=== PATIENT | female | born 1990 | race African-American/Black ===

== ENCOUNTER 2017-03-29 08:37 | Emergency (ER) | payer MEDICAID ==
[~2017-03-29] VITALS: Ht 162.6 cm; Wt 72.6 kg
[2017-03-29 10:26] LABS: Albumin 4.1 g/dL (3.4-5.0); BUN/Creatinine Ratio 13.2; Calcium 9.2 mg/dL (8.5-10.1); Potassium 3.6 mmol/L (3.5-5.1); Total Protein 7.6 g/dL (6.4-8.2)
[2017-03-29 10:33] LABS: Basophils # (auto) 0 uL; Basophils % (auto) 0.3 % (0.0-2.0); Eosinophils # (auto) 0 uL; Eosinophils % (auto) 0.2 % (0.0-7.0); Hematocrit 40.8 % (36.0-46.0); Hemoglobin 13.5 g/dL (12.2-16.2); Lymphocytes % (auto) 42.4 % (10.0-50.0); Mean Corpuscular Hemoglobin 29.4 pg (28.0-32.0); Mean Corpuscular Hgb Conc. 33.2 g/dL (32.0-36.0); Mean Corpuscular Volume 88.7 fL (80.0-100.0); Mean Platelet Volume 8.7 fL (7.4-10.4); Monocytes # (auto) 0 uL; Monocytes % (auto) 0.3 % (0.0-12.0); Neutrophils # (auto) 2.7 uL; Neutrophils % (auto) 56.8 % (37.0-80.0); Platelet Count (auto) 320 10^3/uL (140-450); Red Cell Distribution Width 14.3 % (11.6-16.0); White Blood Cell 4.7 10^3/uL (4.4-10.8)
[2017-03-29 11:42] LABS: Urine Bilirubin Negative (Negative); Urine Blood Negative /uL (Negative); Urine Color Yellow (Yellow); Urine Glucose Normal (Normal); Urine Ketone Negative (Negative); Urine Mucus MANY (None Seen); Urine Nitrite Negative (Negative); Urine RBC 32 /hpf (0 - 4); Urine Squamous Epithelial Cell MANY /hpf (<5); Urine WBC Clumps PRESENT /hpf (None Seen)
[2017-03-29 12:40] VITALS: BP 147/87
== END 2017-03-29 14:13 | disposition home or self-care (01) ==
LOC: ER 08:37
DX: N39.0 Urinary tract infection, site not specified (principal); R42 Dizziness and giddiness; G35 Multiple sclerosis
CPT/HCPCS: 36415; 80053; 81001; 81025; 84484; 85025; 93005

== ENCOUNTER 2017-05-29 17:53 | Emergency (ER) | payer MEDICAID ==
[~2017-05-29] VITALS: Ht 162.6 cm; Wt 72.1 kg
[2017-05-29 20:07] VITALS: BP 123/84
== END 2017-05-29 20:54 | disposition home or self-care (01) ==
LOC: ER 17:59
DX: J02.9 Acute pharyngitis, unspecified (principal); H92.02 Otalgia, left ear; G35 Multiple sclerosis

== ENCOUNTER 2017-06-08 12:37 | Emergency (ER) | payer MEDICAID ==
[~2017-06-08] VITALS: Ht 162.6 cm; Wt 71.2 kg
[2017-06-08 14:36] VITALS: BP 145/97
== END 2017-06-08 15:12 | disposition home or self-care (01) ==
LOC: ER 12:37
DX: H46.9 Unspecified optic neuritis (principal); G35 Multiple sclerosis
CPT/HCPCS: 99283; J7030

== ENCOUNTER 2018-01-24 20:41 | Emergency (ER) | payer MEDICAID ==
[~2018-01-24] VITALS: Ht 162.6 cm; Wt 73.5 kg
[2018-01-24 22:43] VITALS: BP 134/73
[2018-01-24] MEDS ORDERED: TRIAMCINOLONE 40MG/ML 1ML VIAL IM ONE (22:45)
[2018-01-24 22:47] LABS: Basophils # (auto) 0.1 uL; Basophils % (auto) 0.8 % (0.0-2.0); Eosinophils # (auto) 0.2 uL; Hematocrit 36.6 % (36.0-46.0); Hemoglobin 11.9 g/dL (12.2-16.2); Lymphocytes # (auto) 3.2 uL; Lymphocytes % (auto) 42.2 % (10.0-50.0); Mean Corpuscular Hemoglobin 29.7 pg (28.0-32.0); Mean Corpuscular Hgb Conc. 32.7 g/dL (32.0-36.0); Mean Corpuscular Volume 90.8 fL (80.0-100.0); Monocytes # (auto) 0.6 uL; Monocytes % (auto) 8.5 % (0.0-12.0); Neutrophils # (auto) 3.5 uL; Neutrophils % (auto) 46.5 % (37.0-80.0); Nucleated Red Blood Cells % 0.6 %; Platelet Count (auto) 310 10^3/uL (140-450); Red Blood Cells 4.03 10^6/uL (4.0-5.20); White Blood Cell 7.5 10^3/uL (4.4-10.8)
[2018-01-24 23:05] LABS: Albumin 3.8 g/dL (3.4-5.0); BUN/Creatinine Ratio 16.9; Potassium 3.8 mmol/L (3.5-5.1)
[2018-01-24 23:06] LABS: Bilirubin, Total 0.6 mg/dL (0.2-1.0); Total Protein 7.6 g/dL (6.4-8.2)
== END 2018-01-25 01:04 | disposition home or self-care (01) ==
LOC: ER 20:41
DX: H46.9 Unspecified optic neuritis (principal); R51 Headache
CPT/HCPCS: 36415; 70450; 80053; 85025; 85652; 86141; 96372; 99285; J3301